=== PATIENT | female | born 1990 | race Caucasian/White ===

== ENCOUNTER 2024-10-25 05:54 | Inpatient (IN) ==
--- NOTE | 2024-10-17 10:25 | Anesthesiology Consultation ---
Date of Service October 17, 2024 Assessment & Plan (1) Encounter for pre-operative examination: Chart Review Chart Review: Acceptable Risk for Surgery and Patient NOT seen in Pre Admission Testing Infectious Disease screening: Per PAT nursing assessment on 10/17/24, No known infectious disease contacts in past 10 days or current infectious disease symptoms. No recent travel outside the country. History Surgery Operation Date: 10/25/24 08:00 Proposed Procedures p Primary Section - Ravi Mcgregor MD Height/Weight Height: 5 ft 7 in Weight: 72.575 kg Allergies Allergy/AdvReac Type Severity Reaction Status Date / Time No Known Allergies Allergy Verified 10/17/24 09:48 Medications Home Medications Medication Instructions Recorded Confirmed Last Taken calcium 1 dose PO DAILY 10/17/24 10/17/24 Unknown ferrous sulfate 15 mg iron (75 0 ml PO DAILY 10/17/24 10/17/24 Unknown mg)/mL oral drops lactobacillus combination no.4 3 0 mmu cells PO DAILY 10/17/24 10/17/24 Unknown billion cell capsule (Probiotic) multivitamin 1 tab PO DAILY 10/17/24 10/17/24 Unknown Past Medical History Medical History (Updated 10/17/24 @ 10:45 by Isa Santos PA-C) Hx of cardiac murmur remotely told 'mild heart murmur'; no mention of murmur in recent notes per chart review including 05/2023 anesthesia notes Sepsis due to Escherichia coli hx, 2022, hospitalized [facility] Uterine prolapse hx Past Family History Family History Other Breast cancer Non-Hodgkin lymphoma Past Surgical History Surgical History (Updated 10/17/24 @ 10:25 by Isa Santos PA-C) History of uterosacral colpopexy 05/2023, w/rectocele repair Hx of wisdom tooth extraction Social History Smoking Status: Never smoker Do You Dip or Chew Tobacco: No Hx Alcohol Use: No Hx Substance Use: No substance use type: does not use Lab Results Anesthesia Preop Results Results Anesthesia Widget: Urine Color Yellow 10/10/24 Urine Appearance Cloudy (Clear) A 10/10/24 Urine pH 7.0 (4.5-7.5) 10/10/24 Urine Specific [place] 1.009 (1.000-1.030) 10/10/24 Urine Protein Negative (Negative) 10/10/24 Urine Glucose (UA) Negative (Negative) 10/10/24 Urine Ketones Negative (Negative) 10/10/24 Urine Blood Negative (Negative) 10/10/24 Urine Nitrite Negative (Negative) 10/10/24 Urine Bilirubin Negative (Negative) 10/10/24 Urine Urobilinogen Negative (Negative) 10/10/24 Urine Leukocyte Esterase Negative (Negative) 10/10/24 Urine WBC (Auto) 0-5 /hpf (0-5) 10/10/24 Urine RBC (Auto) 0-2 /hpf (0-2) 10/10/24 Urine Hyaline Casts (Auto) 0-2 /lpf (0-2) 10/10/24 Urine Epithelial Cells (Auto) 3-5 /hpf (0-2) H 10/10/24 Urine Bacteria (Auto) None Seen (None Seen) 10/10/24 Testing Laboratory Results 09/11/24: WBC: 6.25 H/H: 11.0(L)/33.5(L) PLATELETS: 157 CREATININE: 0.4(L)
[2024-10-25] MEDS: LACTATED RINGER'S 1,000 ML IV SCH ×2 (06:20→07:22)
[2024-10-25 06:37] LABS: Hematocrit (blood only) 32.9 % (37.0-47.0); Hemoglobin 11.4 g/dl (12.0-16.0); Immature Granulocytes # (auto) 0.03 K/uL (0.01-0.20); Immature Granulocytes % (auto) 0.5 %; Mean Corpuscular Hemoglobin 32.3 pg (25.0-34.0); Mean Corpuscular Volume 93.2 fL (80.0-100.0); Platelet Count 137 K/uL (130-400); RDW Standard Deviation 46.5 fL (36.4-46.3); Red Blood Count 3.53 M/uL (4.20-5.40); White Blood Count 6.11 K/ul (4.8-10.8)
[2024-10-25] MEDS ORDERED: PHENYLEPHRINE HCL 25 MG/250 ML NSS IV ONE (06:48)
[2024-10-25] MEDS ORDERED: DEXAMETHASONE SOD INJ 4 MG/ML VIAL ONE (06:48)
[2024-10-25] MEDS ORDERED: OXYTOCIN 10 UNITS/ML VIAL ONE (06:48)
[2024-10-25] MEDS ORDERED: ONDANSETRON INJ 2 MG/ML 2 ML VIAL ONE (06:48)
[2024-10-25] MEDS ORDERED: MoRPHine SULFATE PF 1 MG/ML 10 ML AMP/VIAL ONE (06:49)
[2024-10-25] MEDS: ACETAMINOPHEN 500 MG TAB PO SCH (07:21)
[2024-10-25] MEDS: CITRIC ACID/SODIUM CITRATE 15 ML UDC PO SCH (07:48)
--- NOTE | 2024-10-25 07:52 | History & Physical Bridge Note ---
Date of Service October 25, 2024 History & Physical Bridge Note I have examined the patient, reviewed the History & Physical and in the interval since the performance of the History & Physical I have noted the following changes of clinical significance: no changes noted Patient was scheduled for primary section with bilateral tubal sterilization for history of surgery for vaginal prolapse and mid urethral sling. She desires permanent sterilization with tubal and signed informed consent. Understand risks and benefits. All questions were answered.
[2024-10-25] MEDS ORDERED: MoRPHine SULFATE PF 1 MG/ML 10 ML AMP/VIAL INT SPINAL ONE (07:55)
[2024-10-25] MEDS ORDERED: HYDROmorphone INJ 0.5 MG/0.5 ML SYR IV PRN (07:55)
[2024-10-25] MEDS ORDERED: LACTATED RINGER'S 500 ML IV PRN (07:55)
[2024-10-25] MEDS ORDERED: NALOXONE HCL 0.08 MG in SYRINGE 1.8 ML IV PRN (07:55)
[2024-10-25] MEDS ORDERED: PROMETHAZINE 6.25 MG/50.25 ML BAG IV PRN (07:55)
[2024-10-25] MEDS ORDERED: ONDANSETRON INJ 2 MG/ML 2 ML VIAL IV PRN (07:55)
[2024-10-25] MEDS ORDERED: diphenhydrAMINE 50 MG/ML VIAL IV PRN (07:55)
[2024-10-25] MEDS ORDERED: NALBUPHINE HCL INJ 10 MG/ML AMP IV PRN (07:55)
[2024-10-25] MEDS ORDERED: NALOXONE HCL 0.4 MG/1 ML VIAL/CARP IV PRN (07:55)
[2024-10-25] MEDS ORDERED: NALOXONE HCL 1 MG in SODIUM CHLORIDE 0.9% 1,000 ML IV PRN (07:55)
[2024-10-25] MEDS ORDERED: NO NARCOTICS OR SEDATIVES SCH (08:00)
[2024-10-25] MEDS ORDERED: SODIUM CHLORIDE 0.9% 1,000 ML IV SCH (08:00)
[2024-10-25] MEDS ORDERED: DC INTRASPINAL MORPHINE SCH (08:00)
--- NOTE | 2024-10-25 08:01 | History & Physical Report ---
Date of Service October 25, 2024 Assessment & Plan (1) Encounter for pre-operative examination: Plan: 33-year-old -0-0-5 at 39 weeks and 1 day gestation scheduled for primary with tubal sterilization for history of uterus sacrocolpopexy with mesh and urethral sling, Vital signs stable afebrile, heart rate reassuring, Patient signed an informed consent for above procedure, All questions were answered. (2) History of midurethral sling procedure: (3) with 39 completed weeks gestation: (4) History of uterosacral colpopexy: Admission and Anticipated Discharge Date Admission Date: October 25, 2024 History of Present Illness Primary Care Provider: NO PCP Patient is an 33-year-old -0-0-5 at 39 weeks and 1 day gestation who was scheduled for primary delivery with tubal sterilization for history of surgery for pelvic organ prolapse and mid urethral sling for urinary incontinence. It was uterosacral colpopexy with mesh and midurethral sling by Dr. Moore. He recommended to have primary . She also desires to personalization for permanent sterilization. Understand its irreversible and surgical and the risks of tubal failure may end up with ectopic which may require further surgeries she understands she may regret having permanent sterilization and there are alternatives of contraception like control pills, patch, injections, IUDs and vasectomy. She understand the risks and benefits of surgery and signed an informed consent today. She denies any medical problems or surgeries she does not use any medications and she denies allergies to medications. her has been uncomplicated. Allergies Allergy/AdvReac Type Severity Reaction Status Date / Time No Known Allergies Allergy Verified 10/17/24 09:48 Home Medications Medication Instructions Recorded Confirmed Type calcium 1 dose PO DAILY 10/17/24 10/17/24 History ferrous sulfate 15 mg iron (75 0 ml PO DAILY 10/17/24 10/17/24 History mg)/mL oral drops lactobacillus combination no.4 3 0 mmu cells PO DAILY 10/17/24 10/17/24 History billion cell capsule (Probiotic) multivitamin 1 tab PO DAILY 10/17/24 10/17/24 History Patient History Medical History Hx of cardiac murmur remotely told 'mild heart murmur'; no mention of murmur in recent notes per chart review including 05/2023 anesthesia notes Sepsis due to Escherichia coli hx, 2022, hospitalized [facility] Uterine prolapse hx Surgical History Hx of wisdom tooth extraction History of uterosacral colpopexy 05/2023, w/rectocele repair Family History Other Breast cancer Non-Hodgkin lymphoma Social History Smoking Status: Never smoker Second Hand Exposure: No; Do You Dip or Chew Tobacco: No; Tobacco Cessation Education Requested by Patient: No Hx Alcohol Use: No Hx Substance Use: No Preferred Language: Samoan Communication Ability: Effective Air Quality Consultant Required: No Beliefs That Will Affect Care: None marital status: Current Living Situation: Spouse and Family Other Information That Helps Us Care for You: No Feels Safe at Home: Yes Safety Concerns: Feels Safe At This Time Assistive Devices: None OB History history of 5 full-term 's BULK PICKER History no history of STDs, Physical Exam Constitutional: WD/WN, vitals as above well developed, well nourished and comfortable Gastrointestinal (Abdomen): normal bowel sounds, soft, nontender, no hepatosplenomegaly ( gravid) Genitourinary: OB Exam Monitor Tracing: + external FHT monitor used and + category I Results & Data Vital Signs (Past 12 Hours) Vital Signs Temp Pulse Resp BP 10/25/24 06:15 36.8 C 20 10/25/24 06:13 84 107/59 L Laboratory Results Lab Results 10/25/24 Range/Units 06:17 WBC 6.11 (4.8-10.8) K/ul RBC 3.53 L (4.20-5.40) M/uL Hgb 11.4 L (12.0-16.0) g/dl Hct 32.9 L (37.0-47.0) % MCV 93.2 (80.0-100.0) fL MCH 32.3 (25.0-34.0) pg MCHC 34.7 (32.0-36.0) g/dL RDW Std Deviation 46.5 H (36.4-46.3) fL RDW Coeff of Bucky 13.7 (11.5-14.5) % Plt Count 137 (130-400) K/uL MPV 10.8 (9.4-12.4) fL Immature Gran % (Auto) 0.5 % Neut % (Auto) 61.3 % Lymph % (Auto) 27.5 % [place] % (Auto) 9.0 % Eos % (Auto) 1.5 % Baso % (Auto) 0.2 % Neut # (Auto) 3.75 (1.40-6.50) K/uL Lymph # (Auto) 1.68 (1.20-3.40) K/uL [place] # (Auto) 0.55 (0.11-0.59) K/uL Eos # (Auto) 0.09 (0.00-0.50) K/uL Baso # (Auto) 0.01 (0.00-0.20) K/uL Immature Gran # (Auto) 0.03 (0.01-0.20) K/uL Blood Type A Positive Antibody Screen NEGATIVE
[2024-10-25] MEDS ORDERED: ePHEDrine sulfate 50 MG/5 ML SYR ONE (08:28)
[2024-10-25] MEDS ORDERED: SENNA 8.6 MG TAB PO PRN (09:19)
[2024-10-25] MEDS ORDERED: MAGNESIUM HYDROXIDE SUSP 30 ML UDC PO PRN (09:19)
[2024-10-25] MEDS ORDERED: HYDROCORTISONE ACETATE 25 MG SUPP PR PRN (09:19)
[2024-10-25] MEDS ORDERED: CALCIUM CARBONATE 500 MG CHEWABLE TAB PO PRN (09:19)
[2024-10-25] MEDS ORDERED: BENZOCAINE 20% SPRY 85 APPLN/85 GM CAN EXT PRN (09:19)
--- NOTE | 2024-10-25 09:25 | Operative Report ---
Post Operative Report Pre & Post Diagnosis Operation Date: 10/25/24 08:00 Pre-Op Diagnosis: 33-year-old -0-0-5 at 39 weeks and 1 day gestation with history of uterine vaginal sacrocolpopexy and Midurethral Sling for pelvic organ prolapse and urinary incontinence, urogyn recommending primary section, patient is multipara desires permanent sterilization and declines reversible contraceptive options Post-Op Diagnosis: Same;Delivery of a live female child at 0829 I identified the patient and participated in the time-out.: Yes Procedure Operation Date: 10/25/24 08:00 Actual Procedures p Primary Section and bilateral tubal sterilization with coagulation - Ravi Mcgregor MD Surgeon Ravi Mcgregor MD Auction Block Clerk PRATEEK Cifuentes Quantitative Blood Loss (QBL) 664 Findings Consistent with Post-Op Diagnosis baby was a viable female delivered at 08:29 AM encephali presentation,Apgars 9/9 weight is 3440 gr, Maternal findings, normal uterus, fallopian tubes and ovaries Specimens placenta and cord Drains De catheter drained 300 mL of clear urine Anesthesia Type Spinal Complications none Indications patient is a 33-year-old -0-0-5 at 39 weeks and 1 day gestation who has a history of utero- vaginal sacrocolpopexy with mesh and mid urethral sling for pelvic organ prolapse and urinary incontinence and urogyn recommending primary section. Patient is multipara and desires permanent sterilization and declines nonsurgical reversible options. Description of Procedure Patient was taken to operating room where a spinal anesthesia was given without difficulty. She was placed in dorsal supine position with a leftward tilt. She was prepared and draped in usual sterile fashion. A financial skin incision was made and carried through to the underlying layer of fascia with the Bovie. Fascia was incised in the midline and incision was extended laterally with the help of Mascorro scissors. Then the upper aspect of the fascial incision was grasped with 2 Sergio clamps elevated the underlying rectus muscles were dissected off sharply with Mascorro scissors. Same thing was done on the lower incision. Then the muscles were in the midline, peritoneum was identified grasped with 2 pickups and entered sharply with Metzenbaum scissors. Peritoneal incision was extended superior and inferiorly with good visualization of the bladder. The bladder blade was inserted. Vesicouterine peritoneum was identified, grasped with pickups and entered sharply with Metzenbaum scissors, bladder flap was created digitally and bladder blade was reinserted. Uterus was incised in transverse fashion, incision was extended laterally, membranes were ruptured and clear fluid was obtained. Baby's head was delivered without difficulty, followed by shoulders and body with minimal traction without faculty. Mouth and nose were suctioned there was dried on the field he was vigorously crying and moving. The cord was clamped times and cut at 1 minute delay and then the infant was handed off to the pediatric team. Then the placenta was delivered manually as intact and complete. Uterus was externalized and cleared of all clots and debris's. Uterine incision was repaired with 0 Vicryl in a running locked fashion, second umbricating layer was placed with the same suture in running locked fashion. Excellent hemostasis achieved. per patient request tubal station was completed. Right fallopian tube was identified grasped with Tylor clamps it was coagulated and cut with hand-held LigaSure about 3 to 4 cm length in the middle were there were no underlying vessels. it was hemostatic. Same he was along the left fallopian tube which was identified and grasped with Tylor clamps, it was coagulated and cut with hand- held LigaSure about 3 to 4 cm in length where there were no underlying vessels. And it was hemostatic. Cul-de-sac and the pelvis was irrigated with warm normal saline and suctioned. Incision was checked to be hemostatic again. Uterus was returned to the abdomen, parietal peritoneum was reapproximated with 3-0 Vicryl in a running fashion and the muscles were reapproximated in the same suture in a running fashion. All of the fascia and rectus muscles were hemostatic. Rectus fascia was reapproximated with 0 Vicryl starting from both columns meeting in the midline. Subcuticular fat tissue was brought together with 2-0 Vicryl in a running fashion, skin was closed with 4-0 Monocryl in a subcuticular cuticular fashion. The mom and baby tolerated procedure well. Sponge needle instrument count was correct x3. she was given 2 g of cefazolin before surgery. No complications happened, I was present during whole procedure. My child development assistant was needed for retraction, hemostasis and aid during delivery of I attest to the content of the Intraoperative Record and any orders documented therein. Any exceptions are noted below.
[2024-10-25] MEDS ORDERED: LACTATED RINGER'S 1,000 ML IV SCH (09:30)
[2024-10-25] MEDS: KETOROLAC 30 MG/ML VIAL IV SCH (09:43)
--- NOTE | 2024-10-25 10:15 | Anesthesiology Progress Note ---
Date of Service October 25, 2024 Anesthesia Post Procedure Vital Signs Vital Signs: Temp Pulse Resp BP Pulse Ox 10/25/24 10:09 98 10/25/24 10:09 96 H 10/25/24 10:09 93 H 105/56 L 10/25/24 10:04 90 98 10/25/24 10:02 82 93 10/25/24 09:59 78 99 10/25/24 09:58 83 95/59 L 10/25/24 09:54 89 99 10/25/24 09:49 85 99 10/25/24 09:48 79 97/60 L 10/25/24 09:44 88 99 10/25/24 09:39 87 99 10/25/24 09:34 89 97 10/25/24 09:33 80 93 10/25/24 09:30 94 H 96/51 L 10/25/24 09:29 76 99 10/25/24 09:24 83 96 10/25/24 09:19 86 97/56 L 98 10/25/24 06:15 98.2 F 20 10/25/24 06:13 84 107/59 L Transfer of Care Handoff Completed per policy Notes Mental Status: alert / awake / arousable and participated in evaluation Patient Amnestic to Procedure: Yes Nausea / Vomiting: adequately controlled Pain: adequately controlled Airway Patency, RR, SpO2: stable & adequate BP & HR: stable & adequate Hydration State: stable & adequate Neuraxial Anesthesia: was administered and sensory block is resolving Anesthetic Complications: no major complications apparent and Pt Satisfied with anesthetic care
[2024-10-25] MEDS: OXYTOCIN 20 UNITS/LR 1,002 ML IV SCH (12:29)
[2024-10-25] MEDS: SIMETHICONE 80 MG CHEW PO SCH (14:22)
[2024-10-25] MEDS: ACETAMINOPHEN 325 MG TAB PO SCH (15:51)
[2024-10-25 20:25] VITALS: RESP 16
[2024-10-25] MEDS: DOCUSATE SODIUM 100 MG CAP PO SCH (21:29)
[2024-10-26] MEDS ORDERED: diphenhydrAMINE Capsule 25 MG CAP PO PRN (01:55)
[2024-10-26] MEDS ORDERED: ONDANSETRON INJ 2 MG/ML 2 ML VIAL IV PRN (01:55)
[2024-10-26] MEDS ORDERED: HYDROmorphone INJ 0.5 MG/0.5 ML SYR IV PRN (01:55)
[2024-10-26] MEDS ORDERED: PROMETHAZINE 12.5 MG/50.5 ML BAG IV PRN (01:55)
[2024-10-26] MEDS ORDERED: diphenhydrAMINE 50 MG/ML VIAL IV PRN (01:55)
[2024-10-26 06:53] LABS: Hematocrit (blood only) 27.5 % (37.0-47.0); Hemoglobin 9.3 g/dl (12.0-16.0); Immature Granulocytes # (auto) 0.02 K/uL (0.01-0.20); Immature Granulocytes % (auto) 0.3 %; Mean Corpuscular Hemoglobin 31.8 pg (25.0-34.0); Mean Corpuscular Volume 94.2 fL (80.0-100.0); Platelet Count 108 K/uL (130-400); RDW Standard Deviation 47.9 fL (36.4-46.3); Red Blood Count 2.92 M/uL (4.20-5.40); White Blood Count 6.61 K/ul (4.8-10.8)
[2024-10-26 07:49] VITALS: PULSE 78; TEMP 97.9; O2SAT 97
[2024-10-26] MEDS: PRENATAL VITAMIN 1 TAB PO SCH (08:12)
[2024-10-26] MEDS: FERROUS SULFATE 325 MG TAB PO SCH (08:12)
[2024-10-26] MEDS: DIPHTHER/TETAN/PERTUS Vaccine (Tdap, Adol/Adult) 0.5mL IM ONE (08:18)
--- NOTE | 2024-10-26 09:02 | Obstetrical Progress Note ---
Date of Service October 26, 2024 Assessment & Plan (1) with 39 completed weeks gestation: discharged home Subjective Ambulation: ambulating normally Voiding: no voiding problems Passing Gas:: Yes Diet Tolerance:: regular diet Lochia:: Small Feeding Type:: breast feeding Current Pain Level(1-10): 0 doing well. wants to go home today. Physical Exam Constitutional WD/WN, vitals as above Gastrointestinal (Abdomen) Inspection/Auscultation: abdomen normal to inspection abdomen soft and non-tender. incision c/d/i. fundus firm below U. Musculoskeletal Extremities: extremities normal to inspection Skin no rashes, warm and dry Neurologic patellar DTR's 2+ bilat, sensation intact Psychiatric A+Ox3, euthymic affect Results & Data Vital Signs (Past 12 Hours) Vital Signs Temp Pulse Resp BP Pulse Ox O2 Del Method 10/26/24 07:30 Room Air 10/26/24 07:30 36.6 C 78 16 90/59 L 97 Room Air 10/26/24 03:15 36.5 C 66 16 86/53 L 95 Room Air 10/26/24 01:30 16 95 10/26/24 00:18 16 93 10/25/24 23:25 16 95 10/25/24 23:25 36.5 C 70 16 90/57 L 95 Room Air 10/25/24 22:33 16 95 10/25/24 21:19 16 96 Laboratory Results 10/25/24 10/26/24 06:17 06:05 WBC 6.11 6.61 RBC 3.53 L 2.92 L Hgb 11.4 L 9.3 L Hct 32.9 L 27.5 L MCV 93.2 94.2 MCH 32.3 31.8 MCHC 34.7 33.8 RDW Std Deviation 46.5 H 47.9 H RDW Coeff of Bucky 13.7 14.1 Plt Count 137 108 L MPV 10.8 11.1 Immature Gran % (Auto) 0.5 0.3 Neut % (Auto) 61.3 69.1 Lymph % (Auto) 27.5 19.5 [place] % (Auto) 9.0 10.3 Eos % (Auto) 1.5 0.6 Baso % (Auto) 0.2 0.2 Neut # (Auto) 3.75 4.57 Lymph # (Auto) 1.68 1.29 [place] # (Auto) 0.55 0.68 H Eos # (Auto) 0.09 0.04 Baso # (Auto) 0.01 0.01 Immature Gran # (Auto) 0.03 0.02 Treponema pallidum Ab Negative Blood Type A Positive Antibody Screen NEGATIVE
[2024-10-26] MEDS: IBUPROFEN 600 MG TAB PO SCH (09:13)
[2024-10-26] MEDS ORDERED: KETOROLAC 30 MG/ML VIAL IV PRN (09:19)
[2024-10-26 10:10] VITALS: BP 93/57
[2024-10-27] MEDS ORDERED: IBUPROFEN 600 MG TAB PO PRN (09:19)
[2024-10-27] MEDS ORDERED: ACETAMINOPHEN 325 MG TAB PO PRN (15:19)
== END 2024-10-26 12:45 | disposition home or self-care (01) | DRG 785 ==
LOC: 4S1 05:54 → EDSTATUS 08:00 → 4E2 14:22